=== PATIENT | male | born 1985 | race Caucasian/White ===

== ENCOUNTER 2020-08-11 11:20 | Emergency (ER) | payer OTHER, SELFPAY ==
[~2020-08-11] VITALS: Ht 165.1 cm; Wt 78.0 kg
[2020-08-11 11:22] VITALS: BP 110/77
== END 2020-08-11 13:52 | disposition home or self-care (01) ==
LOC: ED 11:20
DX: J06.9 Acute upper respiratory infection, unspecified (principal); M54.9 Dorsalgia, unspecified; Z20.822 Contact with and (suspected) exposure to COVID-19
CPT/HCPCS: U0003

== ENCOUNTER 2020-08-27 16:41 | Emergency (ER) | payer OTHER ==
[~2020-08-27] VITALS: Ht 165.1 cm; Wt 78.0 kg
[2020-08-27 16:52] VITALS: Ht 165.1 cm; Wt 78.0 kg
[2020-08-27 17:34] VITALS: BP 135/85
== END 2020-08-27 17:34 | disposition home or self-care (01) ==
LOC: ED 16:41
DX: H10.9 Unspecified conjunctivitis (principal)